=== PATIENT | male | born 1985 | race Caucasian/White ===

== ENCOUNTER 2018-02-16 09:09 | Emergency (ER) | payer SELFPAY ==
[~2018-02-16] VITALS: Ht 175.3 cm; Wt 81.6 kg
[2018-02-16 09:25] VITALS: BP_SYST 139
[2018-02-16 10:40] VITALS: BP_SYST 136
== END 2018-02-16 10:40 | disposition home or self-care (01) ==
LOC: SED 09:09
DX: L03.114 Cellulitis of left upper limb (principal); R03.0 Elevated blood-pressure reading, without diagnosis of hypertension
CPT/HCPCS: 99283

== ENCOUNTER 2018-02-19 09:38 | Emergency (ER) | payer SELFPAY ==
[~2018-02-19] VITALS: Ht 175.3 cm; Wt 86.2 kg
[2018-02-19 09:38] VITALS: BP_SYST 131
[2018-02-19] MEDS ORDERED: DIPHENOXYLATE HCL/ATROP SULF 2.5 MG TAB PO ONE (10:30)
[2018-02-19] MEDS ORDERED: NACL 0.9% 1,000 ML IV ONE (10:30)
[2018-02-19 11:04] LABS: CALCIUM 9.7 mg/dL (8.4-11.0); CREATININE 0.89 mg/dL (0.55-1.30); POTASSIUM 4.1 mmol/L (3.5-5.1)
[2018-02-19 11:24] VITALS: BP_SYST 125
== END 2018-02-19 11:21 | disposition home or self-care (01) ==
LOC: SED 09:38
DX: K52.9 Noninfective gastroenteritis and colitis, unspecified (principal); R03.0 Elevated blood-pressure reading, without diagnosis of hypertension
CPT/HCPCS: 36415; 80048; 96360; 99284; J7030